=== PATIENT | male | born 1960 | race Caucasian/White ===

== ENCOUNTER 2017-04-21 11:36 | Inpatient (IN) ==
[~2017-04-21 11:36] MED LIST: FentaNYL 100 MCG/2 ML INJECTION ONE; HEPARIN 1,000 UNITS/500 ML PREMIX (*CVL ONLY*) IV ONE; HEPARIN 1,000unit/ml INJECTION 10ml ONE; LIDOCAINE 1% (10mg/ml) 30ml SDV INJ ONE; MIDAZOLAM 2mg/2ml INJECTION ONE; NITROGLYCERIN 50MG INJECTION IV ONE; NS 1,000 ML ONE; Verapamil 5 MG/2 ML VIAL ONE
[2017-04-21] MEDS ORDERED: TICAGRELOR 90 MG TABLET ONE (11:43)
--- OUTSIDE RECORDS SUMMARY | 2017-04-21 11:58 | External Medical Summary ---
:1960 Author Organization [facility] Summary purpose CCDA Sent to [facility] Chief Complaint and Reason for Visit No authorized Reason for Visit (Admitting Diagnosis) is available for this visit. Problem list No authorized problems tracked for continuity of care are available for this visit. Encounters No authorized problems tracked for encounter diagnoses are available for this visit. Medications No home medications recorded for this patient visit Allergies, adverse reactions, alerts Allergen Category Ingredient Status Reaction Severity Onset Demerol Drug Demerol Active "makes me angry" Adolescence Demerol Drug meperidine Active "makes me angry" Adolescence Immunizations No immunizations recorded for this patient visit Relevant diagnostic tests and/or laboratory data No authorized results are available for this patient visit History of procedures No procedures recorded for this patient visit. Functional status No functional or cognitive status observations are available for this visit. Vital signs No authorized vital signs are available for this visit. Social history No Social History or smoking status observations were recorded for this visit. ( Unknown if ever smoked.) Treatment Plan No treatment plan text is available for this visit. Hospital discharge instructions No discharge instruction text is available for this visit.
--- OUTSIDE RECORDS SUMMARY | 2017-04-21 11:58 | External Medical Summary ---
:1960 Author Organization [facility] Summary purpose CCDA Sent to [facility] Chief Complaint and Reason for Visit [...] for this patient visit History of procedures Procedure Code Code Type Description Date Performed Performing Physician 35439 CPT-4 DIAGNOSTIC COLONOSCOPY 04-02-2015 ADITI FOY J7120 CPT-4 RINGERS LACTATE 04-02-2015 ADITI FOY INFUSION Functional status Functional Status Finding Observation Time Dexterity Right-handed 23-87-013142:50 Weight Bearing Statu Full 29-38-645224:50 Transferring/Ambulat Independent 95-33-682102:50 Bathing Independent 72-89-473230:50 Dressing Independent 20-66-969919:50 Eating Independent 37-92-913896:50 Drinking Independent 04-20-163418:50 Toileting Independent 71-58-514669:50 Able to Turn Self in Independent 40-79-463974:50 Stairs Independent 84-71-850056:50 Cognitive Status Finding Observation Time Level of Consciousne Lethargic 65-72-726768:40 Oriented to Person Yes :[address] Yes :52 Oriented to Time Yes 07-76-614694:52 Eyes - ANALISA Yes :52 Vital signs Type Value Date Respirations 16 26-72-364276:14 Pulse 59 42-27-346176:14 O2 Saturation 96% 17-56-950815:14 Systolic Blood Press 110mm/HG 19-88-273572:14 Diastolic Blood Pres 64mm/HG 20-90-241273:14 Temperature (Fahr) 97.8Degrees :40 Height 68in :52 Weight 165LB :52 Social history Type Value Smoking Status CURRENT EVERY DAY SMOKER Treatment Plan No treatment plan text is available for this visit. Hospital discharge instructions No discharge instruction text is available for this visit.
--- OUTSIDE RECORDS SUMMARY | 2017-04-21 11:58 | External Medical Summary ---
:1960 Author Organization [facility] Summary purpose CCDA Sent to [facility] Chief Complaint and Reason for Visit [...] Code Type Description Date Performed Performing Physician 59136 CPT-4 MRI CHEST SPINE W/O 03-20-2015 ANGELICA OVERTON Functional status No functional or cognitive status [...]
--- OUTSIDE RECORDS SUMMARY | 2017-04-21 11:58 | External Medical Summary ---
:1960 Author Organization [facility] Summary purpose CCDA Sent to [facility] Chief Complaint and Reason for Visit No authorized Reason for Visit (Admitting Diagnosis) is available for this visit. Problem list No authorized problems tracked for continuity of care are available for this visit. Encounters No authorized problems tracked for encounter diagnoses are available for this visit. Medications No medications recorded for this patient visit Allergies, [...] Code Type Description Date Performed Performing Physician 87063 CPT-4 MRI NECK SPINE W/O & 11-20-2015 ANGELICA SOTELO W/DYE A9579 CPT-4 ALEXANDER-BASE MR CONTRAST 11-20-2015 ANGELICA SOTELO NOS,1ML Functional status No functional or cognitive status [...]
--- OUTSIDE RECORDS SUMMARY | 2017-04-21 11:58 | External Medical Summary ---
:1960 Author Organization [facility] Summary purpose CCDA Sent to [facility] Chief Complaint and Reason for [...] Code Type Description Date Performed Performing Physician 25959 CPT-4 ECHO EXAM OF ABDOMEN 03-12-2015 OLAYINKA CORDERO Functional status No functional or cognitive status [...]
--- OUTSIDE RECORDS SUMMARY | 2017-04-21 11:58 | External Medical Summary ---
:1960 Author Organization [facility] Summary purpose CCDA Sent to [facility] Chief Complaint and Reason for [...] visit Relevant diagnostic tests and/or laboratory data RESULTS CBC 55-52-487254:28:00 Result Normal Range Units White Blood Count 9.8 3.8-10.8 x 10*3/uL Red Blood Cells 5.01 4.20-5.80 x 10*6/uL Hemoglobin 16.4 13.20-17.10 g/dl Hematocrit 46.8 38.50-50.00 % Mean Jesusita Volume 93.4 80-100 fL Mean Jesusita Hemoglobin 32.7 27.0-33.0 pg Mean Jesusita Hemoglobin Conc 35.0 32.0-36.0 g/dl RDW - CV 12.3 11.0-15.0 % RDW - SD 40.9 35.1-43.9 FL Platelet Count 310 140-400 x 10*3/uL Mean Platelet Volume 10.3 9.4-12.4 fL Lymphocyte% 23.5 13.0-50.0 % Monocyte % L 5.9 7.0-13.0 % Eosinophil % 0.9 0-6.0 % Lymphocyte # 2.3 0.85-3.90 x 10*3/uL Monocyte# 0.6 0.20-0.95 x 10*3/uL Eosinophil # 0.1 0.0-1.0 x 10*3/uL Segmented Neutrophil 69.0 37-80 % Bands 1.0 0-5 % Lymphocyte 18.0 10-50 % Monocyte H 11.0 0-8.0 % Eosinophil 1.0 0.2-1.0 % Platelet Estimate Platelets Adequate Chemistry Group 08-10-641358:28:00 Result Normal Range Units Glucose H 390 74-106 mg/dl Urea Nitrogen (BUN) H 19 7-18 mg/dl Creatinine H 1.36 0.70-1.30 mg/dl Bun/Creatinine Ratio 14 7.5-25.0 Ratio EGFR L 58 > 60 Sq/M Osmolality Calculation 298 280-300 mOsm/kg Sodium L 135 136-145 mmol/L Potassium 4.2 3.5-5.1 mmol/L Chloride 101 98-107 mmol/L CO2 26.4 21-32 mmol/L Calcium 8.9 8.5-10.1 mg/dl Alkaline Phosphatase 79 46-116 U/L ALT L 11 16-63 U/L AST L 12 15-37 U/L Bilirubin Total 0.5 0.2-1.0 mg/dl Protein Total 7.1 6.4-8.2 g/dl Albumin 3.7 3.4-5.0 g/dl Globulin 3.4 1.0-4.5 g/dl A/G Ratio 1.1 1.0-2.3 Ratio Amylase 30 25-115 U/L Lipase 117 73-393 U/L C-Reactive Protein < 0.50 <=0.9 mg/dl Urinalysis 59-74-899078:33:00 Result Normal Range Units Site Voided Urine Color Yellow Yellow Urine Appearance Clear Clear UA Glucose AB 2+ Negative UA Bili Negative Negative UA SG <=1.005 1.005-1.030 UA Blood Negative Negative UA Ph 5.0 4.5-8.0 UA Protein Negative Negative UA Urobilinogen 0.2 0.2-1.0 EU/dL UA Nitrite Negative Negative UA Leukocyte Negative Negative UA Ketone Negative Negative Reference Lab 26-37-964330:28:00 Result Normal Range Units C-Reactive Protein < 0.50 <=0.9 mg/dl History of procedures Procedure Code Code Type Description Date Performed Performing Physician J7030 CPT-4 NORMAL SALINE SOLUTION 03-10-2015 OLAYINKA CORDERO 65824 CPT-4 EMERGENCY DEPT VISIT 03-10-2015 OLAYINKA CORDERO 31455 CPT-4 HYDRATION IV INFUSION 03-10-2015 OLAYINKA INIT CONSUELO 16974 CPT-4 COMPLETE CBC W/AUTO DIFF 03-10-2015 OLAYINKA WBC CONSUELO 15768 CPT-4 COMPREHEN METABOLIC 03-10-2015 OLAYINKA PANEL CONSUELO 00099 CPT-4 C-REACTIVE PROTEIN 03-10-2015 OLAYINKAANDERSON CORDERO 10362 CPT-4 ASSAY OF AMYLASE 03-10-2015 OLAYINKAANDERSON CORDERO 29591 CPT-4 ASSAY OF LIPASE 03-10-2015 OLAYINKAANDERSON CORDERO 88049 CPT-4 URINALYSIS AUTO W/O 03-10-2015 OLAYINKA SCOPE CONSUELO 22217 CPT-4 ELECTROCARDIOGRAM 03-10-2015 OLAYINKA TRACING CONSUELO 29239 CPT-4 CT ABD & PELV 03-10-2015 OLAYINKA W/CONTRAST CONSUELO Q9967 CPT-4 LOCM 300-399MG/ML 03-10-2015 OLAYINKA IODINE,1ML CONSUELO Functional status Cognitive Status Finding Observation Time Level of Consciousne Alert 95-40-411384:18 Oriented to Person Yes 19-86-672840:[address] Yes 67-56-416851:18 Oriented to Time Yes 35-26-628536:18 Eyes - ANALISA Yes :18 Vital signs Type Value Date Respirations 16 13-73-836584:15 Pulse 73 :15 O2 Saturation 97% :15 Systolic Blood Press 140mm/HG 26-72-905860:15 Diastolic Blood Pres 92mm/HG 49-11-369378:15 Temperature (Fahr) 98.1Degrees 69-53-120020:15 Height 68in 81-20-913797:33 Weight 170LB 34-71-047448:33 Social history Type Value Smoking Status CURRENT EVERY DAY SMOKER Treatment Plan No treatment plan text is available for this visit. Hospital discharge instructions No discharge instruction text is available for this visit.
--- OUTSIDE RECORDS SUMMARY | 2017-04-21 11:58 | External Medical Summary ---
:1960 Author Organization [facility] Summary purpose CCDA Sent to [facility] Chief Complaint and Reason for [...] diagnostic tests and/or laboratory data RESULTS CBC 84-65-324241:46:00 Result Normal Range Units White Blood Count 9.1 3.8-10.8 x 10*3/uL Red Blood Cells 5.29 4.20-5.80 x 10*6/uL Hemoglobin 16.9 13.20-17.10 g/dl Hematocrit 49.9 38.50-50.00 % Mean Jesusita Volume 94.3 80-100 fL Mean Jesusita Hemoglobin 31.9 27.0-33.0 pg Mean Jesusita Hemoglobin Conc 33.9 32.0-36.0 g/dl RDW - CV 12.6 11.0-15.0 % RDW - SD 43.0 35.1-43.9 FL Platelet Count 296 140-400 x 10*3/uL Mean Platelet Volume 10.1 9.4-12.4 fL Neutrophil % 62.9 36.0-78.0 % Lymphocyte% 28.6 13.0-50.0 % Monocyte % L 6.3 7.0-13.0 % Eosinophil % 1.4 0-6.0 % Basophil % 0.8 0-1.0 % Neutrophil # 5.7 1.50-7.80 x 10*3/uL Lymphocyte # 2.6 0.85-3.90 x 10*3/uL Monocyte# 0.6 0.20-0.95 x 10*3/uL Eosinophil # 0.1 0.0-1.0 x 10*3/uL Basophil # 0.1 0.0-1.0 x 10*3/uL Chemistry Group [id number]:46:00 Result Normal Range Units Glucose H 243 74-106 mg/dl Urea Nitrogen (BUN) 18 7-18 mg/dl Creatinine 0.82 0.55-1.30 mg/dl Bun/Creatinine Ratio 22 7.5-25.0 Ratio EGFR 104 > 60 Sq/M Osmolality Calculation 294 280-300 mOsm/kg Sodium 137 136-145 mmol/L Potassium 4.2 3.5-5.1 mmol/L Chloride 102 98-107 mmol/L CO2 27.2 21-32 mmol/L Calcium 9.2 8.5-10.1 mg/dl Alkaline Phosphatase 94 46-116 U/L ALT 19 16-63 U/L AST L 10 15-37 U/L Bilirubin Total 0.6 0.2-1.0 mg/dl Protein Total 7.4 6.4-8.2 g/dl Albumin 3.9 3.4-5.0 g/dl Globulin 3.5 1.0-4.5 g/dl A/G Ratio 1.1 1.0-2.3 Ratio Cholesterol 219 mg/dl <200 mg/dL=Desirable 200-240 mg/dL=Borderline High >240 mg/dL=High HDL Cholesterol 45 40-60 mg/dl LDL Calculated 118.0 mg/dl The NCEP guidelines classify LDL- Cholesterol levels as follows 1. < 100 mg/dL:Optimal 2. 100 - 129 mg/dL:Near optimal/Above optimal 3. 131 -159 mg/dL:Borderline high 4. 160 -189 mg/dL:High 5. >/=190 mg/dL: Very high Triglycerides H* 280 mg/dl <150 mg/dL=Normal 150-199 mg/dL=Borderline High 200-500 mg/dL=High >500 mg/dL=Very High CH Ratio H 5 < 5.0 Ratio Hemoglobin A1C H 10.1 4.5-6.2 % PSA Screen 1.15 0.0-4.0 ng/ml This PSA determination was performed on the [employer] [place] Dimension using an enzyme immunoassay. Values obtained by this method correlate well with other methods but should not be used interchangeably. TSH 1.886 0.35-3.74 uIU/mL Urinalysis 67-90-894751:46:00 Result Normal Range Units Site Voided Urine Color Yellow Yellow Urine Appearance Clear Clear UA Glucose AB 2+ Negative UA Bili Negative Negative UA SG 1.015 1.005-1.030 UA Blood Negative Negative UA Ph 5.5 4.5-8.0 UA Protein Negative Negative UA Urobilinogen 0.2 0.2-1.0 EU/dL UA Nitrite Negative Negative UA Leukocyte Negative Negative Urine RBC None Seen None Seen /hpf Urine WBC None Seen None Seen /hpf Urine Bacteria None Seen None Seen Urine Mucus AB 2+ None Seen UA Ketone Negative Negative History of procedures Procedure Code Code Type Description Date Performed Performing Physician 32338 CPT-4 COMPLETE CBC W/AUTO DIFF 05-20-2016 EMA PANIAGUA WBC 17690 CPT-4 COMPREHEN METABOLIC 05-20-2016 EMA PANIAGUA PANEL 07170 CPT-4 LIPID PANEL 05-20-2016 EMA PANIAGUA G0103 CPT-4 PSA SCREENING 05-20-2016 EMA PANIAGUA 26416 CPT-4 ASSAY THYROID STIM 05-20-2016 EMA PANIAGUA HORMONE 46109 CPT-4 GLYCOSYLATED HEMOGLOBIN 05-20-2016 EMA PANIAGUA TEST 11458 CPT-4 URINALYSIS, AUTO 05-20-2016 EMA PANIAGUA W/SCOPE 56643 CPT-4 ROUTINE VENIPUNCTURE 05-20-2016 EMA PANIAGUA Functional status No functional or cognitive status [...]
--- NOTE | 2017-04-21 12:36 | Cardiology History & Physical ---
History of Present Illness Chief complaint: chest pain HPI: Valentin is a 56 year old male who presented to [facility] ED with chest pain this morning. The pain began this past Monday and has persisted, worsening last night. In the ED his EKG showed ST elevation PA and troponin was slightly over 4. He was transferred emergently by ambulance to [facility] catheterization lab for emergent heart cath with percutaneous intervention performed by Dr. Doyle. His only known medical history is diabetes, type II which patient admits he does not control well. Review of Systems - Constitutional Constitutional: Absent: chills, fatigue, fever(s) - EENMT Eyes: Absent: change in vision Balance: Absent: vertigo Mouth/Throat: Absent: sore throat - Cardiovascular Cardiovascular: Present: chest pain. Absent: palpitations, syncope, dyspnea on exertion, orthopnea Vascular: Absent: pedal edema - Respiratory Respiratory: Absent: cough, dyspnea, dyspnea on exertion - Gastrointestinal Gastrointestinal: Present: nausea. Absent: abdominal pain, diarrhea, vomiting - Genitourinary Genitourinary: Absent: dysuria - Integumentary/Breasts Integumentary: Absent: rash - Neurological Neurological: Absent: dizziness - Endocrine Endocrine: Absent: palpitations PFSH Diabetes Mellitus, Type II. Surgical History: Reconstructive orthopedic surgery for compound fractured legs bilaterally. Family History: Father - PA, CABG, age 61 - Social History Smoking status: Current some day smoker Substance use type: does not use Alcohol intake frequency: does not drink Household members: spouse Current occupational status: employed Current residence: Apartment/Private Home Medications Home Medications Medication Instructions Recorded Confirmed Type Cyclobenzaprine [Flexeril] 1 tab PO PRN 04/21/17 History Hydrocodone Bitartrate 04/21/17 History Tramadol [Ultram] 04/21/17 History Allergies Allergy/AdvReac Type Severity Reaction Status Date / Time meperidine [From Demerol] Allergy Intermediate psychologic Verified 04/21/17 18: 06 al Exam - Constitutional no acute distress, well nourished, cooperative - Routine HEENT Exam Head: Present: normocephalic Nose: moist mucous membranes - Routine Neck Exam Absent: JVD, carotid bruit - Routine Chest/Breast/Axilla Exam Chest wall: Absent: tenderness - Routine Respiratory Exam Present: CTA bilaterally. Absent: rales, wheezes - Routine Cardiovascular Exam Present: RRR, no murmur. Absent: JVD - Routine Abdominal Exam Present: soft, normoactive bowel sounds - Routine Extremities Exam Present: no edema - Routine Skin Exam Present: intact, dry, warm - Routine Neurological Exam Present: alert, oriented X3 - Routine Psychiatric Exam Present: normal affect, normal thought process Results 04/23/17 04:24 04/23/17 04:24 Laboratory Results - last 24 hr 04/21/17 04/21/17 13:16 15:06 Glucometer 330 Troponin I 10.800 H Specimen Hemolysis < 15 - Imaging and Cardiology Echo: pending EKG interpretations - EKG EKG results cardiology: sinus rhythm - Blocks, axis, hypertrophy, ST abn Repolarization changes or abnormalities: ST or T wave suggestive of ischemia Hospital Course This is a general summary of the patient's hospital course. For more details refer to the complete medical record. Time spent with patient: 25 - 35 minutes DVT Prophylaxis: Lovenox Assessment and Plan - Attestation Attestation Narrative: 04/25/17 13:09 Recommendation After examining the patient I agree with the above assessment. I am involved in the formulation of the patient's plan of care. - Assessment and Plan (1) STEMI (ST elevation myocardial infarction) Status: Resolved - s/p heart cath and stents x2 to RCA. - LAD and Diag have 60% stenosis. - Plan f/u stress test to determine if LAD or Diag cause ischemia then will discuss PCI vs CABG (CABG would be after 6 months on Brilinta). - cont Brilinta, ASA, BB, and statin. - discussed post cath instructions and take Brilinta daily without fail. 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 - LAD and Diag have 60% stenosis. - Plan f/u stress test to determine if LAD or Diag cause ischemia then will discuss PCI vs CABG (CABG would be after 6 months on Brilinta). - cont Brilinta, ASA, BB, and statin. - discussed post cath instructions and take Brilinta daily without fail. 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
[2017-04-21] MEDS ORDERED: PROMETHAZINE 25 MG INJECTION IVP PRN (12:51)
[2017-04-21] MEDS ORDERED: NS 1,000 ML IV SCH ×2 (12:51→17:15)
[2017-04-21] MEDS ORDERED: NITROGLYCERIN 0.4 MG SUBLINGUAL TABLET SL PRN (12:51)
[2017-04-21] MEDS ORDERED: METOCLOPRAMIDE 10mg/2ml INJECTION IVP PRN (12:51)
[2017-04-21] MEDS ORDERED: MAG-AL + SIM ORAL LIQUID 30ml PO PRN (12:51)
[2017-04-21] MEDS ORDERED: BISACODYL 10 MG SUPPOSITORY RECTALLY PRN (12:51)
[2017-04-21] MEDS ORDERED: ACETAMINOPHEN 325 MG TABLET PO PRN (12:51)
[2017-04-21] MEDS ORDERED: MORPHINE SULFATE 4mg INJECTION IVP PRN ×2 (12:51)
[2017-04-21] MEDS ORDERED: HYDROCODONE/APAP 5mg/325mg TABLET PO PRN (12:51)
[2017-04-21] MEDS ORDERED: ONDANSETRON 4 MG/2 ML INJECTION IVP PRN (12:51)
[2017-04-21] MEDS ORDERED: LORazepam 0.5 MG TABLET PO PRN (12:51)
[2017-04-21] MEDS ORDERED: ATROPINE 1 MG/ML INJECTION IVP PRN (12:51)
[2017-04-21] MEDS: INSULIN ASPART 100unit/ml INJECTION SQ PRN ×3 (13:30→21:30)
--- NOTE | 2017-04-21 16:54 | Consult Note ---
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 The pain was more of an aching in his left arm and neck, so he put it off for 5 days thinking that is was more neurologic. In the ER, he was found to have a troponin of 4.6 and findings of a STEMI on his EKG. He was given therapeutic lovenox and Dr. Delgado was called. He was taken to the labor relations analyst and received a PEDRO PABLO to his RCA. Cardiothoracic surgery consult is recommended to treat the remainder of his disease. Other findings in [place] were a WBC of 20.9, glucose of 350, creatinine of 1.23 , and total bilirubin of 1.1. He is currently doing well. I am consulted for diabetes management. [facility] Patient Stated Medical History Other Musculoskeletal Yes: neck fusion, ulnar L elbow, bone grafts hips after farming accident Clinic Medical History STEMI (ST elevation myocardial infarction) (Acute Medical) Type 2 diabetes mellitus without complications (Acute Medical) Surgical History: Reconstructive orthopedic surgery for compound fractured legs bilaterally. Family History: Father CAD - Social History Smoking status: Current some day smoker Substance use type: does not use Current residence: Apartment/Private Home Review of Systems - EENMT EENMT Comments: no vision or hearing changes - Cardiovascular Cardiovascular Comments: + chest pain, no lower extremity edema or ROE - Respiratory Respiratory Comments: no cough, no SOA, no wheezing - Gastrointestinal Gastrointestinal Comments: no n/v/d - Musculoskeletal Musculoskeletal: Present: back pain, muscle cramps, neck pain - Integumentary/Breasts Integumentary Comments: no rash - Neurological Neurological Comments: no seizure, no syncope Medications Home Medications Medication Instructions Recorded Confirmed Type Cyclobenzaprine [Flexeril] 1 tab PO PRN 04/21/17 History Hydrocodone Bitartrate 04/21/17 History Metformin [Glucophage] 500 mg PO BIDWM 04/21/17 04/21/17 History Tramadol [Ultram] 04/21/17 History Exam Vital Signs: Temperature 98.9 F 12/08/17 12:00 Pulse Rate 95 04/21/17 15:30 Respiratory Rate 18 04/21/17 15:30 Blood Pressure 105/68 04/21/17 15:30 Pulse Oximetry 95 04/21/17 15:30 - Constitutional Present: no acute distress, well nourished - Routine HEENT Exam Head: Present: normocephalic, atraumatic Eye: Present: EOMI, PERRL - Routine Neck Exam Present: supple - Routine Respiratory Exam Present: CTA bilaterally - Routine Cardiovascular Exam Present: RRR - Routine Abdominal Exam Present: soft, normoactive bowel sounds, non distended, non tender - Routine Extremities Exam Present: no edema - Routine Skin Exam Present: intact, dry, warm - Routine Neurological Exam Present: alert, oriented X3, CN II-XII intact - Routine Psychiatric Exam Present: normal affect Assessment and Plan (1) Type 2 diabetes mellitus without complications Current visit: Yes Status: Acute (2) STEMI (ST elevation myocardial infarction) Current visit: Yes Status: Acute (3) Chronic pain due to injury Current visit: Yes Status: Chronic Assessment and Plan: DM2 - A1C verbally reported to be 11 -on metformin at home - hold and use ISS -get A1C -wants to follow with Dr. Sauceda at discharge STEMI - s/p PEDRO PABLO to RCA -needs follow up with CTS to discuss CABG -care per Dr. 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 Hospital Course: 04/21/17 17:03 stop metformin and use ISS home meds for chronic pain check A1C CTS consult at d/c per cardio
[2017-04-21 18:30] VITALS: BMI 24.8
[2017-04-21] MEDS: ATORVASTATIN 40 MG TABLET PO SCH (21:30)
[2017-04-21] MEDS: TICAGRELOR 90 MG TABLET PO SCH (21:30)
[2017-04-22] MEDS: INSULIN ASPART 100unit/ml INJECTION SQ PRN ×4 (06:34→20:11)
[2017-04-22] MEDS: ASPIRIN *EC* 81 MG TABLET PO SCH (08:18)
[2017-04-22] MEDS: TICAGRELOR 90 MG TABLET PO SCH ×2 (10:25→21:22)
--- NOTE | 2017-04-22 11:01 | Cardiac Catheterization Report ---
DATE OF PROCEDURE 04/21/2017 PROCEDURE PERFORMED 1. Selective bilateral coronary angiography. 2. Left heart catheterization. 3. Percutaneous coronary intervention of proximal and mid distal right coronary artery using two drug-eluting stents, a 3.0 x 26 mm Resolute Crossett distal and a 3.5 x 26 mm Resolute Crossett proximal. INDICATIONS Mr. Turcios is a 56-year-old male with history of diabetes who presented with non STEMI. He reports he has had symptoms of on-and-off left shoulder pain and across his chest for the last week or so but last night the symptoms got worse and this morning he went to the emergency room where he was found to have inferior ST-elevation and elevated Troponin. He was emergently referred for coronary angiography to [facility]. NARRATIVE OF PROCEDURE After the risks and benefits of the procedure were explained to the patient at length, informed consent was obtained. The patient was brought to the cardiac catheterization laboratory, prepped and draped in the usual fashion. Intravenous midazolam and Fentanyl were used for conscious sedation during the procedure. The right wrist was prepped using ChloraPrep solution. The right radial artery was then accessed using the micro punch needle. A 6-Fr Slender sheath was inserted using modified Seldinger technique without difficulty. A 6- Fr Andres diagnostic catheter was used to selectively cannulate the left main coronary artery. Multiple hand injections were performed. Multiple orthogonal views were obtained. We used the same Andres catheter then to selectively cannulate the right coronary artery. Multiple hand injections were performed. Multiple orthogonal views were obtained. Percutaneous coronary intervention of the right coronary artery was performed - see details below. The catheter was removed over a J-shaped floppy wire. The right radial artery access site was compressed using a TR band compression device. SUMMARY OF FINDINGS LEFT MAIN: The left main is a large-caliber vessel that trifurcates into LAD, ramus intermedius and left circumflex artery. The left main is free of significant disease. LEFT CIRCUMFLEX ARTERY: Left circumflex artery is a medium-caliber vessel. The circumflex gives off a medium-size diagonal branch that had moderate irregularities in the proximal segment and moderate diffuse disease noted in the distal segment. The ramus intermedius is a medium-size vessel that has mild luminal irregularities. LEFT ANTERIOR DESCENDING ARTERY: Left anterior descending artery is a medium- caliber vessel that wraps around the apex of the heart. There are moderate irregularities noted in the proximal segment. LAD then gives off medium-size diagonal branch. After the origin of the diagonal branch there is a very long lesion noted in the LAD, about 60% luminal stenosis noted. The distal LAD has mild diffuse disease. The origin of the diagonal branch has a lesion about 70% stenosis noted and a long lesion, about 60% stenosis, noted in the proximal and mid segment. The distal vessel has mild diffuse disease. RIGHT CORONARY ARTERY: The right coronary artery is a large-caliber vessel. In the proximal right coronary artery there is a long lesion, about 60% stenosis, noted. Distal right coronary artery had just at the bifurcation of the posterior descending a large posterolateral branch has a focal lesion about 99% stenosis noted. Appears to be ruptured plaque. PERCUTANEOUS CORONARY INTERVENTION: A 6 JR4 guiding catheter was used to selectively cannulate the right coronary artery. Using the 0.014-inch Runthrough coronary guidewire in the distal right coronary artery, the lesion was crossed. The lesion was then predilated using a 2.0 x 12-mm balloon at 16 atmospheres. Multiple serial inflations were performed. Peak inflation pressure was 16 atmospheres. We then proceeded with advancing the stent, a 3.0 x 23 mm drug-eluting stent Resolute Crossett was advanced across the lesion, deployed at 12 atmospheres. We then proceeded with a stent in the proximal and mid right coronary artery. A 3.5 x 26 mm Resolute Sadiq stent was then advanced across the lesion, deployed at 12 atmospheres. This yielded good angiographic results. OSWALDO 3 flow noted in the vessel. No full luminal dissection or coronary perforation noted. CONCLUSION 1. Inferior ST-elevation UT. 2. Distal right coronary artery 99% stenosis, culprit vessel for UT. 3. Mid LAD long lesion, 60% stenosis, diagonal long lesion 60%. 4. Successful percutaneous intervention of distal, proximal and mid right coronary artery using a total of two drug-eluting stents, a 3.0 x 26 mm Resolute Sadiq distal, and 3.5 x 26 mm Resolute Crossett proximal. RECOMMENDATIONS 1. Dual-antiplatelet therapy, Ticagrelor, is recommended for at least 12 months. The patient was given a loading dose of Ticagrelor 180 mg in the lab. 2. Medical management of coronary artery disease is recommended. I recommend an outpatient stress test to assess significance of LAD and diagonal lesion. Further revascularization strategy for significant ischemia in LAD and diagonal territory will be discussed with the patient which includes percutaneous option versus bypass surgery. 3. The patient will be monitored closely in ICU. LAUREL
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
[2017-04-22] MEDS ORDERED: INSULIN GLARGINE 100unit/ml INJECTION SQ ONE (12:57)
[2017-04-22] MEDS: EMPAGLIFLOZIN 10 MG TABLET PO SCH (13:33)
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
[2017-04-22] MEDS: ATORVASTATIN 40 MG TABLET PO SCH (21:23)
[2017-04-23] MEDS ORDERED: TICAGRELOR 90 MG TABLET PO SCH (09:00)
[2017-04-23] MEDS: EMPAGLIFLOZIN 10 MG TABLET PO SCH (09:10)
[2017-04-23] MEDS: ASPIRIN *EC* 81 MG TABLET PO SCH (09:12)
[2017-04-23] MEDS: TICAGRELOR 90 MG TABLET PO SCH (09:15)
[2017-04-23 10:20] VITALS: TEMP 97.5
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
--- NOTE | 2017-04-23 13:47 | Discharge Summary ---
<Blossom Engel - Last Filed: 04/23/17 14:41> Discharge Information Date of admission: 04/22/17 18:00 Anticipated date of discharge: 04/23/17 Attending Physician: Cristobal Delgado MD Primary care physician: Dr. Rodriges Consults: 04/21/17 12:51 Outpt Cardiac Rehab Consult [CONS] Routine 04/21/17 13:38 Outpt Cardiac Rehab Consult [CONS] Routine 04/21/17 15:46 Physician Consult [CONS] Routine Consulting Provider: Sonia Zamarripa Reason For Exam: diabetes management Ordering Provider has Notified Publication Specialist: No 04/21/17 17:04 Dietary Consult [CONS] Routine Comment: Reason For Exam: - Discharge Diagnosis (1) STEMI (ST elevation myocardial infarction) Status: Resolved (2) Type 2 diabetes mellitus without complications Status: Chronic STEMI - s/p 04/21/2017 heart cath and stents x2 to RCA. - LAD and Diag have 60% stenosis. - Plan f/u stress test to determine if LAD or Diag cause ischemia then will discuss PCI vs CABG (CABG would be after 6 months on Brilinta). - cont Brilinta, ASA, BB, and statin. - 04/22 ECG SR with inferior [place] in past - discussed post cath instructions and take Brilinta daily without fail. DM2 per hospitalist - A1C is 13.1 - uncontrolled. -on metformin at home - hold 48 hrs post dye; previously on 500 mg bid, will increase to 850 mg bid at discharge -corrective insulin, doses increased -Jardiance initiated at 10 mg/d, for combined diabetes/cardiovascular indications. Prescriptions for increased dose metformin and Jardiance written for discharge. -Given single shot Lantus yesterday to help with immediate control pending resumption of metformin this evening. -f/u with Dr. Sauceda at discharge in 1-2 weeks. 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 patient reports medications used infrequently. Leukocytosis -likely reactive -CXR clear in [place] -U/A neg for infection. -20.9-->17.5 with 11% bands--> 13.5 without left shift ZACK - resolved. -Metformin held 48 hours after dye, resume this evening Hypokalemia -40 mEq KCl supplemented earlier this morning - Procedures Procedures: 04/21/[address] Doyle CONCLUSION 1. Inferior ST-elevation [place]. 2. Distal right coronary artery 99% stenosis, culprit vessel for WV. 3. Mid LAD long lesion, 60% stenosis, diagonal long lesion 60%. 4. Successful percutaneous intervention of distal, proximal and mid right coronary artery using a total of two drug-eluting stents, a 3.0 x 26 mm Resolute [place] distal, and 3.5 x 26 mm Resolute [place] proximal. RECOMMENDATIONS 1. Dual-antiplatelet therapy, Ticagrelor, is recommended for at least 12 months. The patient was given a loading dose of Ticagrelor 180 mg in the lab. 2. Medical management of coronary artery disease is recommended. I recommend an outpatient stress test to assess significance of LAD and diagonal lesion. Further revascularization strategy for significant ischemia in LAD and diagonal territory will be discussed with the patient which includes percutaneous option versus bypass surgery after six months. 3. The patient will be monitored closely in ICU. - Laboratory Labs: 04/23/17 04:24 04/23/17 04:24 History of Present Illness HPI: Valentin is a 56 year old male who presented to [facility] ED with chest pain this morning. The pain began this past Monday and has persisted, worsening last night. In the ED his EKG showed ST elevation [place] and troponin was slightly over 4. He was transferred emergently by ambulance to [facility] catheterization lab for emergent heart cath with percutaneous intervention performed by Dr. Doyle. His only known medical history is diabetes, type II which patient admits he does not control well. 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 The pain was more of an aching in his left arm and neck, so he put it off for 5 days thinking that is was more neurologic. In the ER, he was found to have a troponin of 4.6 and findings of a STEMI on his EKG. He was given therapeutic lovenox and Dr. Delgado was called. He was taken to the laboratory technician and received a PEDRO PABLO to his RCA by Dr. Doyle. Other findings in [place] were a WBC of 20.9, glucose of 350, creatinine of 1.23 , and total bilirubin of 1.1. He admits he has not controlled his diabetes in the past. But he has moved to [place] 3 months ago and has since started an exercise routine and has lost weight. Hospital Course Pt was taken emergently to heart cath and received drug eluding stents x2 to the RCA. He has 60% stenosis in LAD and Diag. Plan to have stress test to determine amount of ischemia. Then determine if stents or CABG appropriate. Consulted Dr. Zamarripa/Dr. Cano for Diabetes management and meds adjusted. Recommended he take Jardiance, increased metformin, and check BS regularly. He did receive one dose of Lantus. Restarted metformin on day of DC to allow dye washout for renals. He has cut back on his pain meds. His next day ECG showed SR with Q waves in inferior leads. Labs acceptable. VS stable. The usual post HC and stent instructions given to pt verbally and in writing. Informed pt and pt to take Brilinta every day without fail. Informed pt to check FBS and 2 hr pc. and write down and take to Dr. Rodriges. Informed pt the check BP 2-3x a week and take to [facility] appt. Since his BP is in the 90's but he denies lightheadedness while up and walking, we will cont metoprolol 12.5mg BID. Samples of Brilinta for 8 days given to pt and coupons for insurance and Medicare. and scripts for 30 days and 90 days with 11 refills given to pt. Scripts for LFT in 2 weeks and LFT and fasting lipid profile in 8 weeks givent o pt. He will do labs in [place] at Dr. Rodriges office. Stable for DC to home with . Time spent with patient: greater than 35 minutes DVT Prophylaxis: other Exam Vital signs: Temperature 97.5 F 04/23/17 10:00 Pulse Rate 83 04/23/17 12:00 Respiratory Rate 22 04/23/17 10:00 Blood Pressure 101/67 04/23/17 10:00 Pulse Oximetry 97 04/23/17 10:00 - Constitutional no acute distress - Routine Respiratory Exam Present: CTA bilaterally - Routine Cardiovascular Exam Present: RRR, no murmur. Absent: JVD - Routine Abdominal Exam Present: soft, non distended - Routine Extremities Exam Present: no edema, pulses intact - Routine Skin Exam Present: intact, dry Comments: Right wrist cath site with dreassing D/I, without hematoma, bruising or drainage. - Routine Neurological Exam Present: alert, oriented X3, normal speech - Routine Psychiatric Exam Present: normal affect, normal thought process, cooperative, good insight, good judgment Results 04/23/17 04:24 04/23/17 04:24 CBC 04/23/17 Range/Units 04:24 WBC 13.5 H (4.5-11.0) T/MM3 RBC 3.82 L (4.50-5.90) M/MM3 Hgb 11.9 L (13.5-17.5) GM/DL Hct 37.4 L (41-53) % Plt Count 297 (130-400) T/MM3 Neut # (Auto) 10.1 H (1.8-7.7) T/MM3 Lymph # (Auto) 1.8 (1-4.8) T/MM3 Dillon # (Auto) 1.5 H (0-0.8) T/MM3 Eos # (Auto) 0.1 (0-0.5) T/MM3 Baso # (Auto) 0.0 (0-0.2) T/MM3 Comprehensive Metabolic Panel 04/23/17 Range/Units 04:24 Sodium 137 (134-144) MEQ/L Potassium 3.4 L (3.6-5) MEQ/L Chloride 103 (98-107) MEQ/L Carbon Dioxide 21 L (22-30) MEQ/L BUN 26.0 H (9-20) MG/DL Creatinine 0.9 (0.8-1.5) MG/DL Glucose 138 H (75-110) MG/DL Calcium 9.3 (8.4-10.2) MG/DL Intake and Output 04/22/17 04/23/17 04/23/17 22:59 06:59 14:59 Intake Total 600 / 600 100 / 100 240 / 240 Output Total 300 / 300 Balance 300 / 300 100 / 100 240 / 240 Intake: Oral 600 / 600 100 / 100 240 / 240 Output: Urine 300 / 300 Other: # Voids 1 - Imaging and Cardiology Echo: pending - EKG Interpretation EKG: sinus rhythm Discharge Plan - Med Rec/Dispo Referrals/Follow Up: Cristobal Delgado MD [Physician] - (in 2 to 4 weeks) Richard Rodriges DO [Physician] - (1 to 2 weeks. ) Niyah Instructions: [facility] Heart Cath Trans Rad, Myocardial Infarction (DC), Coronary Artery Disease (DC), Heart Healthy Diet (DC), Type 2 Diabetes in Adults (DC) Prescriptions: New Empagliflozin [Jardiance] 10 mg PO DAILY #30 tab Metformin [Glucophage] 850 mg PO BIDWM #60 tab Atorvastatin [Lipitor] 40 mg PO HS #30 tab Nitroglycerin [Nitrostat] 0.4 mg SL Q5M PRN #25 tab PRN Reason: Angina Ticagrelor [Brilinta] 90 mg PO Q12H #60 tab Aspirin *EC* [Ecotrin] 81 mg PO DAILY tab Metoprolol Tartrate [Lopressor] 12.5 mg PO WB #60 tab Continue Cyclobenzaprine [Flexeril] 1 tab PO PRN PRN Reason: Muscle Spasm Hydrocodone Bitartrate Tramadol [Ultram] Discontinued Metformin [Glucophage] 500 mg PO BIDWM - Disposition 01 Discharged Home, Self-Care - Dismissal Complete Discharge Instructions are:: Complete <Cristobal Delgado - Last Filed: 04/24/17 16:02> Discharge Information Date of admission: 04/22/17 18:00 Attending Physician: Cristobal Delgado MD Consults: 04/21/17 12:51 Outpt Cardiac Rehab Consult [CONS] Routine 04/21/17 13:38 Outpt Cardiac Rehab Consult [CONS] Routine 04/21/17 15:46 Physician Consult [CONS] Routine Consulting Provider: Sonia Zamarripa Reason For Exam: diabetes management Ordering Provider has Notified Publication Specialist: Haleigh 04/21/17 17:04 Dietary Consult [CONS] Routine Comment: Reason For Exam: - Discharge Diagnosis (1) STEMI (ST elevation myocardial infarction) Status: Resolved (2) Type 2 diabetes mellitus without complications Status: Chronic (3) Chronic pain due to injury Status: Chronic - Laboratory Labs: 04/23/17 04:24 04/23/17 04:24 Hospital Course This is a general summary of the patient's hospital course. For more details refer to the complete medical record. Exam Vital signs: Temperature 97.5 F 04/23/17 10:00 Pulse Rate 90 04/23/17 14:00 Respiratory Rate 28 H 04/23/17 14:00 Blood Pressure 95/61 04/23/17 11:46 Pulse Oximetry 98 04/23/17 13:00 Results 04/23/17 04:24 04/23/17 04:24 Attestation Narriative - Attestation Attestation Narrative: 04/24/17 16:02 Recommendation After examining the patient I agree with the above assessment. I am involved in the formulation of the patient's plan of care.
[2017-04-23 14:59] VITALS: BP 95/61; PULSE 90; RESP 28; O2SAT 98
[2017-04-23] MEDS ORDERED: METFORMIN 850 MG TABLET PO SCH (17:30)
--- NOTE | 2017-04-25 10:04 | Echocardiogram ---
DATE OF PROCEDURE April 21, [address] Richard Rodriges This is a two-dimensional echo with spectral Doppler, color-flow and M-mode. It was obtained in a patient with myocardial infarction. Left atrial dimension is at the upper limits of normal. Left ventricle end- diastolic dimension is normal. Left ventricle wall thickness is increased. Inferior and posterior abernathy are akinetic with ejection fraction of about 50%. Right atrium is normal. Right ventricle is normal. Aortic root dimension is normal. Mitral, aortic, tricuspid, and pulmonary valves are morphologically normal with mild mitral and mild tricuspid regurgitation with estimated pulmonary artery systolic pressure of 37. There is trace of pericardial effusion with no echocardiographic evidence of tamponade. IMPRESSION 1. Wall motion abnormalities as described above with ejection fraction of 50%. 2. Concentric left ventricular hypertrophy. 3. Mild mitral regurgitation. 4. Mild tricuspid regurgitation with mild pulmonary hypertension with estimated pulmonary artery systolic pressure of 37. 5. Trace of pericardial effusion with no echocardiographic evidence of tamponade. MTDD
== END 2017-04-23 14:50 | disposition home or self-care (01) | DRG 247 ==
LOC: CCU → CATH 11:36 → CCU 11:37
PROVIDERS: ADMIT Internal Medicine Cardiovascular Disease; ATTEND Internal Medicine Cardiovascular Disease